=== PATIENT | male | born 1965 ===

== ENCOUNTER 2017-07-27 13:05 | Emergency (ER) | payer BC ==
[2017-07-27] MEDS ORDERED: HYDROcodone/ACETAMIN 5-325 MG* 1 TAB PO ONE (13:41)
--- NOTE | 2017-07-27 13:43 | UC ---
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 Denies numbness/tingling CAN walk 4 steps without assistance but still difficult to bear weight and limping. - History of Current Complaint Hx Obtained From: Patient Onset/Duration: Sudden Onset Severity Initially: Moderate Severity Currently: Moderate Aggravating Factor(s): Nothing Alleviating Factor(s): Rest, Elevation, Ice, OTC Meds <Hector Gibbs - Last Filed: 07/27/17 15:13> - History of Current Complaint Chief Complaint: UCLowerExtremity Stated Complaint: ANKLE INJURY, DIZZY Time Seen by Provider: 07/27/17 13:40 - Allergies/Home Medications Allergies/Adverse Reactions: Allergies Allergy/AdvReac Type Severity Reaction Status Date / Time Oxycodone Allergy Severe Unknown Verified 07/27/17 13:18 Reaction Details PMH/Surg Hx/FS Hx/Imm Hx - Surgical History Surgical History: Yes Surgery Procedure, Year, and Place: HERNIA X2 2008, HERNIA 1978, LEFT BREAST LUMP 2003 - Social History Alcohol Use: Daily Alcohol Amount: glass of wine Substance Use Type: None Smoking Status (MU): Never Smoked Tobacco <Cain Barreto - Last Filed: 07/27/17 13:42> Review of Systems Constitutional: Negative Skin: Negative Eyes: Negative ENT: Negative Respiratory: Negative Cardiovascular: Negative Gastrointestinal: Negative Genitourinary: Negative Motor: Negative Neurovascular: Negative Musculoskeletal: Decreased ROM, Edema, Other: - right ankle sprain Neurological: Negative Psychological: Negative All Other Systems Reviewed And Are Negative: Yes <Hector Gibbs - Last Filed: 07/27/17 15:13> Physical Exam Vital Signs: Initial Vital Signs Temp 97.4 F 07/27/17 13:18 Pulse 60 07/27/17 13:18 Resp 24 07/27/17 13:18 BP 77/44 07/27/17 13:18 Pulse Ox 100 07/27/17 13:18 <Cain Barreto - Last Filed: 07/27/17 13:42> Triage Information Reviewed: Yes Vital Signs: Initial Vital Signs Temp 36.3 C 07/27/17 13:18 Pulse 60 07/27/17 13:18 Resp 24 07/27/17 13:18 BP 77/44 07/27/17 13:18 Pulse Ox 100 07/27/17 13:18 Vital Signs Reviewed: Yes Eye Exam: Normal ENT Exam: Normal Dental Exam: Normal Neck exam: Normal Neck: Positive: 1 Respiratory Exam: Normal Cardiovascular Exam: Normal Abdominal Exam: Normal Musculoskeletal: Positive: Strength Limited @, ROM Limited @, Edema @ - soft tissue swelling over and above right lateral malleolus, ROM intact but only limited due to pain, Other: - NVI DP 2+ Neurological Exam: Normal Psychological Exam: Normal Skin Exam: Normal <Hector Gibbs - Last Filed: 07/27/17 15:13> Lower Extremity Course/Dx - Course Course Of Treatment: Pt says when he takes oxycodone he has hallucinations, but he has taken norco without problems. <Cain Barreto - Last Filed: 07/27/17 13:42> - Course Course Of Treatment: Pt declined pain meds, XR of right ankle neg for fx. CAM boot and crutches provided. RICE, NSAIDS.F/u w/ ortho in 2 weeks if pain worsens. - Differential Dx/Diagnosis Provider Diagnoses: right ankle sprain <Hector Gibbs - Last Filed: 07/27/17 15:13> Discharge <Cain Barreto - Last Filed: 07/27/17 13:42> <Hector Gibbs - Last Filed: 07/27/17 15:13> - Discharge Plan Condition: Stable Disposition: HOME Patient Education Materials: Ankle Sprain (ED) Referrals: Veag Driver MD [Primary Care Provider] - Additional Instructions: as tolerated, RICE, NSAIDS as needed
--- NOTE | 2017-07-27 14:07 | RAD ---
HISTORY: Pain, fall, right ankle COMPARISONS: None relevant available time dictation VIEWS: 3, Frontal, lateral, and oblique views of the right ankle FINDINGS: BONE DENSITY: Normal. BONES: There is no displaced fracture. JOINTS: There is no arthropathy. ALIGNMENT: There is no dislocation. SOFT TISSUES: There is soft tissue swelling anteriorly and laterally. OTHER FINDINGS: None. IMPRESSION: SOFT TISSUE SWELLING. NO ACUTE OSSEOUS INJURY. IF SYMPTOMS PERSIST, RECOMMEND REPEAT IMAGING.
[2017-07-27 14:28] VITALS: BP 107/65
== END 2017-07-27 15:10 | disposition home or self-care (01) ==
LOC: UCEAST 13:05
DX: S93.401A Sprain of unspecified ligament of right ankle, initial encounter (principal); X50.1XXA Overexertion from prolonged static or awkward postures, initial encounter; Y93.63 Activity, rugby; Y92.328 Other athletic field as the place of occurrence of the external cause; Z72.89 Other problems related to lifestyle
CPT/HCPCS: 99213; G0463